=== PATIENT | male | born 1950 | race Caucasian/White ===

== ENCOUNTER 2017-07-23 00:40 | Day surgery (SDC) | payer BC ==
[2015-08-06 14:35] VITALS: Ht 188 cm; Wt 106.6 kg
[~2017-07-23] VITALS: Ht 188 cm; Wt 106.6 kg
[~2017-07-23 00:40] MED LIST: ATOR20TA22 PO; BISA-229 PO; BUD8.6RPT NS; BUDE8.43 NS; CETI-434 PO; CETI10CA8 PO; CETI5TAB22 PO; CIPR-214 PO; CIPR-344 PO; DIPH-740 PO; FAMO20TA28 PO; HYDR-318 PO; HYDR-389 PO; HYDR26CR2 TP; LACT1CAP6 PO; LEVO150T72 PO; MULT-1335 PO; MULT1TAB64 PO; OMEG-23 PO; OMEG500C5 PO; PENC5CRE TP; PHEN200T32 PO; PSYL660P5 PO; RANI-324 PO; RANI150C14 PO; TAMS0.4C25 PO
[2017-07-23 09:42] LABS: PLATELET COUNT, AUTOMATED 190 K/uL (150-450)
[2017-07-23] MEDS ORDERED: MIDAZOLAM 2 MG/2 ML VIAL IVP PRN (10:00)
[2017-07-23] MEDS ORDERED: NORMOSOL R SOLN(*) 1000 ML BAG 1,000 ML IV PRN (10:00)
[2017-07-23] MEDS ORDERED: LIDOCAINE/SOD BICARB 8.4% SYR ID ONE (10:00)
[2017-07-23 10:07] VITALS: BP 133/82
[2017-07-23] MEDS ORDERED: fentaNYL CITR 100 MCG/2 ML AMP ONE (10:10)
[2017-07-23] MEDS ORDERED: PROPOFOL EMUL(*) 10MG/ML 20 ML 40 ML ONE (10:10)
[2017-07-23] MEDS ORDERED: DEXAMETHASONE SOD PHOS 10MG/ML ONE (10:10)
[2017-07-23] MEDS ORDERED: LIDOCAINE MPF 1% 5 ML VIAL ONE (10:10)
[2017-07-23] MEDS ORDERED: ONDANSETRON 4 MG/2 ML VIAL ONE (10:10)
[2017-07-23] MEDS ORDERED: ceFAZolin(*) 2GM/D5W 50ML 50 ML IVPB ONE (10:11)
[2017-07-23] MEDS ORDERED: WATER FOR IRRIG,STERILE 3000ML IR ONE (11:01)
[2017-07-23] MEDS ORDERED: CIPR-214 PO (11:30)
[2017-07-23] MEDS ORDERED: mitoMYcin 20 MG VIAL 40 MG in WATER STERILE FOR INJ 50 ML VL 40 ML IR ONE (11:30)
[2017-07-23 12:30] VITALS: BP 126/76
[2017-07-23 12:45] VITALS: BP 124/80
[2017-07-23 12:49] VITALS: BP 130/92
[2017-07-23 12:50] VITALS: BP 131/100
[2017-07-23 13:10] VITALS: BP 130/89
--- NOTE | 2017-07-25 16:17 | OPERATIVE REPORT 1 ---
EVENT DATE: July 23, 2017 SURGEON: Matthew Munoz MD ANESTHESIOLOGIST: Matthew Johnson MD ANESTHESIA: General anesthetic. PREOPERATIVE DIAGNOSIS Possible recurrent bladder cancer. POSTOPERATIVE DIAGNOSIS No evidence of recurrent bladder cancer. PROCEDURES PERFORMED 1. Cystourethroscopy. 2. Hydrodistention of the bladder. DESCRIPTION OF PROCEDURE Under general anesthetic, the patient was prepped and draped in the extended lithotomy position. The 21 panendoscope was admitted through the urethra to the bladder. The bladder showed 4+ trabeculation. Trigone and ureteral orifices were normal. No bloody efflux from either orifice. No other demonstrable lesions in the bladder. The site of the biopsy approximately three months ago shows to be still in the healing phase with a few calculi sticking on the surface. There was an inflammatory lesion in the right bladder neck area with associated hypervascularity. No evidence of recurrent bladder cancer. The bladder filled under gravity flow. It was measured to a total of 1000 mL. On drainage of the bladder, there was no bloody drainage. On reinspection of the bladder, there were no glomerulations. The bladder was drained. The scope was withdrawn. A #18 coude-tipped Yadav was placed through the urethra to the bladder and secured. The catheter was plugged. The patient returned to the recovery room in satisfactory condition. This is a 56-year-old white male in followup for possible recurrent bladder cancer. See operative note for details. No evidence for recurrent bladder cancer. Plan a Mitomycin-C 40 mg bladder treatment. The patient is to continue his usual medications. A copy of instructions was given to the patient. The patient will discharge home on Cipro therapy in addition to his usual medications. Plan followup on the July. [facility]
== END 2017-07-23 12:30 | disposition home or self-care (01) ==
LOC: OR 00:40
DX: Z85.51 Personal history of malignant neoplasm of bladder (principal); I10 Essential (primary) hypertension; E03.9 Hypothyroidism, unspecified
CPT/HCPCS: 36415; 52000; 81001; 84443; 85025; 87088; C1758; J1100; J2001; J2250; J2405; J2704; J3010; J9280; J0690

== ENCOUNTER → 2017-08-10 | Outpatient (CLI) | payer BC ==
[2015-08-06 14:35] VITALS: BMI 28.6
[~2017-08-10] MED LIST changes: +PNEU0.5D3 IM
[2017-08-10 10:50] LABS: LDL CHOLESTEROL 64 mg/dl
== END ==
LOC: LAB 10:12
PROVIDERS: ATTEND Internal Medicine
DX: Z12.5 Encounter for screening for malignant neoplasm of prostate (principal); E78.4 Other hyperlipidemia; E03.9 Hypothyroidism, unspecified; E22.9 Hyperfunction of pituitary gland, unspecified; R79.89 Other specified abnormal findings of blood chemistry
CPT/HCPCS: 36415; 82040; 82247; 82310; 82374; 82435; 82465; 82565; 82947; 83718; 84075; 84132; 84146; 84153; 84155; 84295; 84402; 84403; 84450; 84460; 84478; 84520

== ENCOUNTER → 2017-09-17 | Outpatient (CLI) | payer BC ==
[2015-08-06 14:35] VITALS: BMI 28.6
[~2017-09-17] MED LIST changes: -RANI-324 PO; +RANI-366 PO
== END ==
LOC: LAB 16:53
DX: C67.1 Malignant neoplasm of dome of bladder (principal)
CPT/HCPCS: 99001

== ENCOUNTER → 2017-12-03 | Outpatient (CLI) | payer BC ==
[2015-08-06 14:35] VITALS: BMI 28.6
== END ==
LOC: LAB 12:18
DX: C67.1 Malignant neoplasm of dome of bladder (principal)
CPT/HCPCS: 99001

== ENCOUNTER → 2017-12-21 | Outpatient (CLI) | payer BC ==
[2015-08-06 14:35] VITALS: BMI 28.6
[~2017-12-21] MED LIST changes: +POLY17PO25 PO
--- NOTE | 2017-12-21 11:39 | RADIOLOGY IMAGING REPORT ---
FACILITY: [facility] PATIENT NAME: Leland Hall : 1950 MR: [id number] V: [id number] EXAM DATE: ORDERING PHYSICIAN: BRADY RAMÍREZ TECHNOLOGIST: Location: [facility] Patient: Leland Hall : 1950 Visit/Account:[id number] Date of Sevice: 12/21/2017 KUB SINGLE VIEW ABDOMEN HISTORY: Constipation, left inguinal pain COMPARISON: CT examination from July 2015 FINDINGS: Large amount of stool within the ascending colon. Lung bases are clear. Nonobstructive pattern with out evidence of free air or pneumatosis. There is severe degenerative change right hip. IMPRESSION: Large amount of colonic stool in the ascending colon. No radiographic evidence of obstruction or acu te pathology Severe degenerative change right hip Report Dictated By: Yaya Dominguez MD at 12/21/2017 11:34 AM Report E-Signed By: Yaya Dominguez MD at 12/21/2017 11:36 AM WSN:[id number]
== END ==
LOC: RAD 11:01
PROVIDERS: ATTEND Internal Medicine
DX: K59.00 Constipation, unspecified (principal); M16.11 Unilateral primary osteoarthritis, right hip
CPT/HCPCS: 74018

== ENCOUNTER 2018-02-21 00:38 | Day surgery (SDC) | payer BC ==
[2015-08-06 14:35] VITALS: Ht 188 cm; Wt 104.8 kg
[~2018-02-21] VITALS: Ht 188 cm; Wt 104.8 kg
[~2018-02-21 00:38] MED LIST changes: +EPIN0.3P15 IM; +HYDR-4225 PO; +PRED-420 PO; +PRED20TA6 PO
[2018-02-21 07:39] VITALS: BP 141/91
[2018-02-21] MEDS ORDERED: fentaNYL CITR 100 MCG/2 ML AMP ONE ×2 (08:14→09:02)
[2018-02-21] MEDS ORDERED: PROPOFOL EMUL(*) 10MG/ML 20 ML 20 ML ONE (08:15)
[2018-02-21] MEDS ORDERED: LIDOCAINE 2% IV 100 MG/5ML SYR ONE (08:15)
[2018-02-21] MEDS ORDERED: OXYCHLOROSENE SOD 2 GM BTL 2 GM in WATER STERILE IRRIG(*) 1000ML 1,000 ML IR ONE (08:35)
[2018-02-21] MEDS ORDERED: DEXAMETHASONE SOD 4 MG/ML VIAL ONE (08:36)
[2018-02-21] MEDS ORDERED: ONDANSETRON 4 MG/2 ML VIAL ONE (08:36)
[2018-02-21] MEDS ORDERED: NORMOSOL R SOLN(*) 1000 ML BAG 1,000 ML IV PRN (08:45)
[2018-02-21] MEDS ORDERED: MIDAZOLAM 2 MG/2 ML VIAL IVP PRN (08:45)
[2018-02-21] MEDS ORDERED: ceFAZolin(*) 2GM/D5W 50ML 50 ML IVPB ONE (08:45)
[2018-02-21] MEDS ORDERED: LIDOCAINE/SOD BICARB 8.4% SYR ID ONE (08:45)
[2018-02-21] MEDS: mitoMYcin 20 MG VIAL 40 MG in WATER STERILE FOR INJ 50 ML VL 40 ML IR ONE ×2 (09:10→09:58)
[2018-02-21 10:30] VITALS: BP 122/74
[2018-02-21] MEDS ORDERED: PHEN200T32 PO (10:37)
[2018-02-21] MEDS ORDERED: HYDR-654 PO (10:38)
[2018-02-21] MEDS ORDERED: CIPR-214 PO (10:39)
[2018-02-21 10:45] VITALS: BP 129/90
[2018-02-21 10:59] VITALS: BP 184/111
[2018-02-21 11:00] VITALS: BP 141/95
[2018-02-21] MEDS ORDERED: PHENAZOPYRIDINE 200 MG TAB ONE (11:09)
--- NOTE | 2018-02-21 19:18 | OPERATIVE REPORT 1 ---
EVENT DATE: February 21, 2018 SURGEON: Matthew Munoz MD ANESTHESIOLOGIST: Norman Mckinney MD ANESTHESIA: General anesthetic. PREOPERATIVE DIAGNOSIS Possible recurrent bladder cancer. POSTOPERATIVE DIAGNOSIS No evidence of recurrent bladder cancer. PROCEDURES PERFORMED 1. Cystourethroscopy. 2. Hydrodistention of the bladder. 3. Clorpactin bladder treatment. 4. Mitomycin-C bladder treatment. DESCRIPTION OF PROCEDURE Under general anesthetic, the patient was prepped and draped in the standard lithotomy position. The 21 panendoscope admitted through the urethra into the bladder. The urethra was normal. The prostate showed trilobar hyperplasia with obstruction, moderate median lobe. Verumontanum was normal. Bladder showed 4+ trabeculation. Trigone and ureteral orifices were normal. No bloody efflux from either orifice. Bladder was clear except for the continued healing from the previous biopsy sites. Bladder was filled under gravity flow to total of 1100 mL. On drainage of the bladder, there was no bloody drainage. On reinspection of the bladder, there was no glomerulation. Bladder was filled under gravity flow with Clorpactin solution. The Clorpactin solution was left in contact with the bladder for approximately five minutes. Bladder was drained. On inspection of the bladder, noticed some mild hyperemia. No demonstrable tears. Bladder was irrigated free of the Clorpactin solution several times with water. Yadav was left indwelling, to be removed in the recovery room after the mitomycin-C bladder treatment. Patient tolerated the procedure satisfactorily and returned to the recovery room in stable condition. This is a 67-year-old white male complaining of bladder cancer. He is in followup for possible recurrent disease. FISH test was negative in November 2017. Patient will be ready for discharge home after his mitomycin-C bladder treatment. He is to change positions every 15 minutes over an hour and to void the bladder contents. Patient is to force fluids 2 L per day. Activities are as tolerated. He is to continue usual medications. A copy of instructions was given to the patient. We plan followup in approximately two weeks. [facility]
== END 2018-02-21 10:30 | disposition home or self-care (01) ==
LOC: OR 00:38
DX: C67.9 Malignant neoplasm of bladder, unspecified (principal)
CPT/HCPCS: 51720; A4338; C1758; J1100; J2001; J2405; J2704; J3010; J9280; J0690

== ENCOUNTER → 2018-05-23 | Outpatient (CLI) | payer BC ==
[2015-08-06 14:35] VITALS: BMI 28.6
[~2018-05-23] MED LIST changes: +HYDR-654 PO
== END ==
LOC: LAB 15:53
DX: R31.1 Benign essential microscopic hematuria (principal); C67.1 Malignant neoplasm of dome of bladder
CPT/HCPCS: 99001

== ENCOUNTER → 2018-05-29 | Outpatient (CLI) | payer BC ==
[2015-08-06 14:35] VITALS: BMI 28.6
--- NOTE | 2018-05-29 17:00 | RADIOLOGY IMAGING REPORT ---
FACILITY: [facility] [place] PATIENT NAME: Leland Hall : 1950 MR: [id number] V: [id number] EXAM DATE: ORDERING PHYSICIAN: ZULEMA SENIOR TECHNOLOGIST: Location: [facility] Patient: Leland Hall : 1950 Visit/Account:[id number] Date of Sevice: 05/29/2018 Technique: CHEST PA LAT HISTORY: Cough and chest congestion x 4-5 weeks Comparison studies: None FINDINGS: There is no acute airspace consolidation. No pleural effusion. The cardiomediastinal silh ouette is unremarkable. IMPRESSION: 1. No acute cardiopulmonary process. Report Dictated By: Ta Kothari DO at 05/29/2018 4:52 PM Report E-Signed By: Ta Kothari DO at 05/29/2018 4:55 PM WSN:[id number]
== END ==
LOC: RAD 15:51
PROVIDERS: ATTEND Nurse Practitioner Primary Care
DX: R05 Cough (principal)
CPT/HCPCS: 71046

== ENCOUNTER → 2018-07-15 | Outpatient (CLI) | payer BC ==
[2015-08-06 14:35] VITALS: BMI 28.6
[~2018-07-15] MED LIST changes: +MECL25TA9 PO; +NYST100016 PO
[2018-07-15 16:26] LABS: INR 1.16
== END ==
LOC: LAB 16:01
PROVIDERS: ATTEND Orthopaedic Surgery Adult Reconstructive Orthopaedic Surgery
DX: Z51.81 Encounter for therapeutic drug level monitoring (principal); Z79.01 Long term (current) use of anticoagulants
CPT/HCPCS: 36415; 85610

== ENCOUNTER → 2018-07-22 | Outpatient (CLI) | payer BC ==
[2015-08-06 14:35] VITALS: BMI 28.6
[2018-07-22 16:44] LABS: INR 1.34
== END ==
LOC: LAB 16:08
PROVIDERS: ATTEND Orthopaedic Surgery Adult Reconstructive Orthopaedic Surgery
DX: M17.0 Bilateral primary osteoarthritis of knee (principal); M16.0 Bilateral primary osteoarthritis of hip; Z79.01 Long term (current) use of anticoagulants
CPT/HCPCS: 36415; 85610

== ENCOUNTER → 2018-09-10 | Outpatient (CLI) | payer BC ==
[2015-08-06 14:35] VITALS: BMI 28.6
[2018-09-10 10:54] LABS: PLATELET COUNT, AUTOMATED 226 K/uL (150-450)
[2018-09-10 12:21] LABS: LDL CHOLESTEROL 67 mg/dl
== END ==
LOC: LAB 10:27
PROVIDERS: ATTEND Internal Medicine
DX: Z12.5 Encounter for screening for malignant neoplasm of prostate (principal); C67.9 Malignant neoplasm of bladder, unspecified; E22.9 Hyperfunction of pituitary gland, unspecified; E03.9 Hypothyroidism, unspecified; E78.5 Hyperlipidemia, unspecified; R79.89 Other specified abnormal findings of blood chemistry
CPT/HCPCS: 36415; 81001; 82040; 82247; 82310; 82374; 82435; 82465; 82565; 82947; 83036; 83718; 84075; 84132; 84146; 84153; 84155; 84295; 84402; 84403; 84443; 84450; 84460; 84478; 84520; 84550; 85025

== ENCOUNTER → 2018-09-10 | Outpatient (CLI) | payer BC ==
[2015-08-06 14:35] VITALS: BMI 28.6
== END ==
LOC: LAB 10:28
DX: C67.1 Malignant neoplasm of dome of bladder (principal); R97.20 Elevated prostate specific antigen [PSA]